=== PATIENT | male | born 1970 | race Caucasian/White ===

== ENCOUNTER → 2016-07-09 | Outpatient (CLI) | payer BC ==
[~2016-07-09] MED LIST: BACITRACIN OINTMENT TOP; BACTRIM DS TABL1 TA1 PO; BACTROBAN22 GM EXT; LOTREL PO; NAPROSYN500 MG PO
--- NOTE | ~2016-07-09 | US6 ---
[facility] A Service of [facility] RADIOLOGY TEXT RESULTS PATIENT: STEPHANIE OVERTON LOCATION: [facility] : 74 UNIT #: [id number] AGE: [address]: CARMINA CHENG MD SEX: M ORDER DR: [id number] [address] [id number] MR#: [id number] Acc #: [id number] NAME: STEPHANIE OVERTON : 1970 SEX: M STUDY DATE/TIME: 07/09/2016 8:31 UNIT: [facility] ROOM: STUDY DESCRIPTION: US Abdominal Limited Attending Physician: Carmina Cheng M.D. Referring Physician: Carmina Cheng M.D. Ordering Physician: Carmina Cheng M.D. Primary Care Physician: Carmina Cheng M.D. MEDICAL IMAGING REPORT This report is preliminary unless electronic signature is present. EXAM Right upper quadrant ultrasound, 07/09/2016. HISTORY Abnormally elevated liver enzymes diagnosed 1 week ago. FINDINGS The liver demonstrates an increase in echotexture with attenuation of the ultrasound beam characteristic of fatty infiltration. No cystic or solid mass lesions were seen in the liver. The intra and extrahepatic bile ducts are not dilated. The gallbladder is normal with no evidence of cholelithiasis, wall thickening, or pericholecystic fluid. The common duct measures 2 mm. The pancreas is poorly visualized due to overlying bowel gas. The right kidney is normal. IMPRESSION 1. Fatty infiltration of the liver. 2. Normal gallbladder. 3. Poor visualization of the pancreas due to overlying bowel gas. Dictated by... Bridger Holly M.D. THIS IS AN ELECTRONICALLY VERIFIED REPORT Bridger Holly M.D. at 07/10/2016 8:02 AM RODGER/eva TD: 07/09/2016 09:55 JOB #: [id number] [facility] A Service of [facility] RADIOLOGY TEXT RESULTS PATIENT: STEPHANIE OVERTON LOCATION: [facility] : 74 UNIT #: [id number] AGE: [address]: CARMINA CHENG MD SEX: M ORDER DR: MEDICAL IMAGING REPORT Page 1 of 1
== END | disposition home or self-care (01) ==
LOC: SGUS 07:54
DX: R79.89 Other specified abnormal findings of blood chemistry (principal); K76.0 Fatty (change of) liver, not elsewhere classified
CPT/HCPCS: 76705